=== PATIENT | male | born 1960 | race Caucasian/White ===

== ENCOUNTER 2016-11-15 10:02 | Day surgery (SDC) | payer OTHER ==
[2016-11-15] VITALS (8 sets, daily range): BP systolic 110–132; BP diastolic 74–85; PULSE 63–78; RESP 12–19; O2SAT 96–100
[~2016-11-15] VITALS: Ht 182.9 cm; Wt 89.0 kg
--- NOTE | 2016-11-15 08:47 | PCM.HPANE ---
Patient Data Surgeon Admitting Provider: Attending Provider:Jarrett Richardson DO Primary Care Physician:Luis Lucas MD Other Provider:Elizabeth Pardo Anesthesia Reason for Visit Left Partial Thick Rotator Cuff Tear,Labral Tear Ht/WT & BMI Height (Feet): 6 Height (Inches): 0 Weight (Kilograms): 93.8 Body Mass Index 28.00 Allergies Coded Allergies: codeine (Verified Adverse Reaction, Unknown, Agitation, 05/17/16) STATES IS NOT ALLERGIC TO PERCOCET AND HAS TAKEN WITHOUT INCIDENT. Uncoded Allergies: ADHESIVE BANDAGE (Allergy, Unknown, 11/13/16) pt states had "horrible skin reaction" to adhesive bandage used for last shoulder surgery Past Anesthesia History Anesthesia History: Denies:: Abnormal Airway, Anesthesia Reactions, Difficult Intubation, Fam Anesthesia Reaction, Fam Malignant Hypertherm, Malignant Hyperthermia Diabetes History Hx Diabetes?: No MRSA MRSA: No Medications Reported Medications Pramipexole Dihydrochloride 0.5 Mg Tablet0.5 Mg PO HS 05/15/16 Discontinued Reported Medications Ibuprofen 600 Mg [id number] Mg PO TID PRN For Pain Ref 0 05/15/16 History HEENT History: Denies:: Abnormal Airway Cataracts Difficult Intubation Dysphagia Hearing Problem Sinus Problem TMJ Cardiovascular History: Denies:: AICD Abdominal Aortic Aneurism Atrial Fibrillation Cardiac Surgery Chest Pain Congestive Heart Failure Edema Heart Murmur Hypertension Irregular Heartbeat Pacemaker Hx of Respiratory Problem?: Yes Respiratory History: Positive for:: Pneumonia (one time - remote hx) Denies:: Asthma COPD Emphysema Oxygen Administration Tuberculosis Use of C-PAP Machine Hx Neurologic Problems?: No Neurological History: Denies:: CVA Headaches Multiple Sclerosis Parkinson's Disease Seizures Gastrointestinal History: Denies:: Cirrhosis Gastroesphageal Reflux Gastrointestinal Bleeding Heartburn Hepatitis Hiatal Hernia Rectal Bleeding Hx of Problems?: No Genitourinary History: Denies:: Kidney Stones Urinary Tract Infection Male Hx: Denies:: Prostate Problems Skin History: Denies:: History Skin Disorders? Pressure Ulcers Hx Musculoskeletal Problems?: Yes Musculoskeletal History: Positive for:: Musculoskeletal Trauma (left shoulder current admission problem) Denies:: Back Injury Joint Replacement Systemic Lupus Hx of Psycho/Social Problems?: No Psycho Social History: Denies:: Anxiety Hx Depression Hx Surgeries?: Yes (appe, lysis of adhesions, patellar repair, right shoulder) Hx Any Other Health Problems?: Yes Other History: Denies:: Cancer Thyroid Disease History Blood Transfusions: Denies:: Blood Transfusions Hx Diabetes: No Hx Alcohol Use: YesHx Substance Use: No Smoking Status: Never Smoker Have You Smoked inLast 12 mo: No Stop/Bang S-Snoring: Do You Snore Loudly: No T-Tired: feel tired, fatigued: No O-Obsered: Observed not breath: No P-Blood Pressure: treated: No B- Body Mass Index > 35 kg/m2: No A- Age over 50: Yes N- Neck Large Circumference: No G- Gender Male: Yes DEN Total Score: 2 Risk Assessment Category Category 1A: Patient has history of documented sleep apnea, and HAS NOT received any narcotic, sedative or anesthesia administration during this stay. Category 1B: Patient has history of documented sleep apnea, and HAS received any narcotic , sedative or anesthesia administration during this stay Category 2: Patient has SUSPECTED Obstructive Sleep Apnea, and HAS received any narcotic , sedative or anesthesia administration during this stay. Category 3: Patient has SUSPECTED Obstructive Sleep Apnea and HAS NOT received narcotic, sedative or anesthesia administration during this stay. Category 4: Outpatient in Procedural Areas with known sleep apnea or who screen positive for High Risk via the STOP/BANG questionnaire. Exam Exam General Appearance: Alert, Oriented X3, Cooperative, No Acute Distress HEENT/AIRWAY: MP 2, Neck Movement (FROM), Mouth Opening (3 FBMO) Lungs: Normal Air Movement Heart: Regular Rate/Rhythm Plan Impression Patient chart reviewed, patient interviewed and anesthestic plan with risks, benefits, and alternatives discussed, and informed consent obtained. NPO Status: Clears up to 0900 ASA Physical Status: ASA2 Mod Systemic Disease Anesthetic Plan: GA, Regional Block (Left shoulder block) Bene/Risks/Altern/Consents: Yes HP Complete Prior to Induction: Yes Santos Ag MD Nov 15, 2016 08:47
[~2016-11-15 10:02] MED LIST: Lactated Ringer's 1,000 ML IV SCH; PRAM0.5T10 PO
[2016-11-15] MEDS ORDERED: Phenylephrine/NS 100 mCg/mL 10 mL Syringe IVPUSH ONE (10:03)
[2016-11-15] MEDS ORDERED: fentaNYL-PF 50 mCg/mL 2 mL Inj ONE (10:03)
[2016-11-15] MEDS ORDERED: Ropivacaine-PF 0.5% 30 mL Inj ONE (10:03)
[2016-11-15] MEDS ORDERED: Ondansetron 2 mg/mL 2 mL Inj ONE (10:03)
[2016-11-15] MEDS ORDERED: Propofol 10,000 mCg/mL 20 mL Inj ONE (10:03)
[2016-11-15] MEDS ORDERED: Rocuronium 10 mg/mL 5 mL Inj ONE (10:03)
[2016-11-15] MEDS ORDERED: MetoCLOpramide 5 mg/mL 2 mL Inj ONE (10:03)
[2016-11-15] MEDS ORDERED: Neostigmine 1 mg/mL 5 mL Inj ONE (10:03)
[2016-11-15] MEDS ORDERED: Glycopyrrolate 0.2 mg/mL 5 mL Inj ONE (10:03)
[2016-11-15] MEDS ORDERED: Dexamethasone 4 mg/mL Inj ONE (10:03)
[2016-11-15] MEDS ORDERED: Lactated Ringer's 1,000 ML IV ONE (10:47)
[2016-11-15] MEDS ORDERED: CeFAZolin 2 Gm/50 mL D5W Duplex Bag IV ONE (10:52)
--- NOTE | 2016-11-15 11:10 | PCM.HPANE ---
Patient Data Date of Service: Nov 15, 2016 Surgeon Admitting Provider: Attending Provider:Jarrett Richardson DO Primary Care Physician:Luis Lucas MD Other Provider:Elizabeth Pardo Anesthesia Reason for Visit Left Partial Thick Rotator Cuff Tear,Labral Tear Ht/WT & BMI Height (Feet): 6 Height (Inches): 0.00 Weight (Kilograms): 89 Body Mass Index 26.00 Allergies Coded Allergies: codeine (Verified Adverse Reaction, Unknown, Agitation, 05/17/16) STATES IS NOT ALLERGIC TO PERCOCET AND HAS TAKEN WITHOUT INCIDENT. Uncoded Allergies: ADHESIVE BANDAGE (Allergy, Unknown, 11/13/16) pt states had "horrible skin reaction" to adhesive bandage used for last shoulder surgery Past Anesthesia History Anesthesia History: Denies:: Abnormal Airway, Anesthesia Reactions, Difficult Intubation, Fam Anesthesia Reaction, Fam Malignant Hypertherm, Malignant Hyperthermia Diabetes History Hx Diabetes?: No MRSA MRSA: No Medications Home Meds Incl Beta Yovanny: No Reported Medications Pramipexole Dihydrochloride 0.5 Mg Tablet0.5 Mg PO HS 05/15/16 Discontinued Reported Medications Ibuprofen 600 Mg [id number] Mg PO TID PRN For Pain Ref 0 05/15/16 History History of ENT Problems?: No HEENT History: Denies:: Abnormal Airway Cataracts Difficult Intubation Dysphagia Hearing Problem Sinus Problem TMJ Hx of Heart Problems?: No Cardiovascular History: Denies:: AICD Abdominal Aortic Aneurism Atrial Fibrillation Cardiac Surgery Chest Pain Congestive Heart Failure Edema Heart Murmur Hypertension Irregular Heartbeat Pacemaker Hx of Respiratory Problem?: Yes Respiratory History: Positive for:: Pneumonia (one time - remote hx) Denies:: Asthma COPD Emphysema Oxygen Administration Tuberculosis Use of C-PAP Machine Hx Neurologic Problems?: No Neurological History: Denies:: CVA Headaches Multiple Sclerosis Parkinson's Disease Seizures Hx of GI Problems?: No Gastrointestinal History: Denies:: Cirrhosis Gastroesphageal Reflux Gastrointestinal Bleeding Heartburn Hepatitis Hiatal Hernia Rectal Bleeding Hx of Problems?: No Genitourinary History: Denies:: Kidney Stones Urinary Tract Infection Male Hx: Denies:: Prostate Problems Skin History: Denies:: History Skin Disorders? Pressure Ulcers Hx Musculoskeletal Problems?: Yes Musculoskeletal History: Positive for:: Musculoskeletal Trauma (left shoulder current admission problem) Denies:: Back Injury Joint Replacement Systemic Lupus Hx of Psycho/Social Problems?: No Psycho Social History: Denies:: Anxiety Hx Depression Hx Surgeries?: Yes (appe, lysis of adhesions, patellar repair, right shoulder) Hx Any Other Health Problems?: Yes Other History: Denies:: Cancer Thyroid Disease History Blood Transfusions: Denies:: Blood Transfusions Hx Diabetes: No Hx Alcohol Use: YesHx Substance Use: No Smoking Status: Never Smoker Have You Smoked inLast 12 mo: No Stop/Bang Treated for Sleep Apnea?: No Do You Have a CPAP Machine?: No S-Snoring: Do You Snore Loudly: No T-Tired: feel tired, fatigued: No O-Obsered: Observed not breath: No P-Blood Pressure: treated: No B- Body Mass Index > 35 kg/m2: No A- Age over 50: Yes N- Neck Large Circumference: No G- Gender Male: Yes DEN Total Score: 2 DEN Risk Assessment: Low Risk, <3 Yes Risk Assessment Category Category 1A: Patient has history of documented sleep apnea, and HAS NOT received any narcotic, sedative or anesthesia administration during this stay. Category 1B: Patient has history of documented sleep apnea, and HAS received any narcotic , sedative or anesthesia administration during this stay Category 2: Patient has SUSPECTED Obstructive Sleep Apnea, and HAS received any narcotic , sedative or anesthesia administration during this stay. Category 3: Patient has SUSPECTED Obstructive Sleep Apnea and HAS NOT received narcotic, sedative or anesthesia administration during this stay. Category 4: Outpatient in Procedural Areas with known sleep apnea or who screen positive for High Risk via the STOP/BANG questionnaire. Exam Exam Vital Signs Vital Signs Date Time Temp Pulse Resp B/P Pulse Ox O2 Delivery O2 Flow Rate FiO2 11/15/16 10:48 36.5 78 14 129/85 98 Room Air General Appearance: Alert, Oriented X3, Cooperative HEENT/AIRWAY: MP 2, Neck Movement (Full, h[place]go), Mouth Opening (Wide) Lungs: Clear to Auscultation, Normal Air Movement Heart: Regular Rate/Rhythm, Normal S1, Normal S2 Meds/Labs/Diagnostics Admission Meds Current Medications Lactated Ringer's (Lr) 1,000 ml @ ud STK-MED ONCE IV Last administered on t 10:47; Start 11/15/16 at 10:47; Stop 11/15/16 at 10:48; Status DC Plan Impression Patient chart reviewed, patient interviewed and anesthestic plan with risks, benefits, and alternatives discussed, and informed consent obtained. NPO Status: 11/15@0800 BLACK COFFEE ASA Physical Status: ASA1 Normal Healthy Anesthetic Plan: GA, Regional Block Bene/Risks/Altern/Consents: Yes HP Complete Prior to Induction: Yes Alphonso Conroy MD Nov 15, 2016 11:08
[2016-11-15] MEDS ORDERED: Lactated Ringer's 500 ML IV PRN (11:12)
[2016-11-15] MEDS ORDERED: Lactated Ringer's 1,000 ML IV SCH (11:12)
[2016-11-15] MEDS ORDERED: MetoCLOpramide 5 mg/mL 2 mL Inj IVPUSH PRN (11:15)
[2016-11-15] MEDS ORDERED: EPHEDrine Sulfate 50 mg/mL Inj IVPUSH PRN (11:15)
[2016-11-15] MEDS ORDERED: Ondansetron 2 mg/mL 2 mL Inj IVPUSH PRN (11:15)
[2016-11-15] MEDS ORDERED: Phenylephrine 10,000 mCg/mL Inj IVPUSH PRN (11:15)
[2016-11-15] MEDS ORDERED: Dexamethasone 4 mg/mL Inj IVPUSH PRN (11:15)
[2016-11-15] MEDS ORDERED: fentaNYL-PF 50 mCg/mL 2 mL Inj IVPUSH PRN (11:15)
[2016-11-15] MEDS ORDERED: oxyCODONE-Acetamin 5-325 mg Tablet PO PRN (14:10)
--- NOTE | 2016-11-15 15:04 | PCM.ANEP1 ---
Post Anesthesia Phase 1 PACU Phase 1 Assessment Date of Service: Nov 15, 2016 Vital Signs Vital Signs Date Time Temp Pulse Resp B/P Pulse Ox O2 Delivery O2 Flow Rate FiO2 11/15/16 14:24 70 16 132/82 96 Room Air 11/15/16 14:15 68 13 124/80 97 Nasal Cannula 2 11/15/16 14:10 64 13 120/74 99 Nasal Cannula 11/15/16 14:05 63 12 120/75 96 Simple Mask 10 11/15/16 14:00 65 19 110/76 96 Simple Mask 10 11/15/16 13:52 36.3 73 19 130/81 100 Simple Mask 10 11/15/16 10:48 36.5 78 14 129/85 98 Room Air Anesthetic Administered: GA, Regional Block (Left shoulder block) Level of Alertness: Awake, talking BOCANEGRA's with Equal Strength: No (Shoulder block still in effect) Pain: No Nausea or Vomiting: No Oxygen Delivery: Simple Mask Lungs: Normal Air Movement Dermatome Level: Full Sensation (except for distribution of L shoulder block) Santos Ag MD Nov 15, 2016 15:04
--- NOTE | 2016-11-15 15:05 | PCM.ANEP2 ---
Post Anesthesia Evaluation ASA/CMS Post Anesthesia VS in Patient's Normal Range?: Yes Resp Stable; Airway Patent?: Yes CV Function & Hydration Stable: Yes Mental Status Recovered?: Yes Pain control Satisfactory?: Yes N/V Control Satisfactory?: Yes Santos Ag MD Nov 15, 2016 15:04
--- NOTE | 2016-11-15 21:54 | OP ---
[address] [address] OPERATIVE REPORT PATIENT: ANUP HERNANDEZ : 1960 MR#: [id number] ADMIT: 11/15/2016 JOB ID: [id number] DATE OF SURGERY: 11/15/2016 PREOPERATIVE DIAGNOSIS(ES): 1. Left shoulder high-grade partial thickness rotator cuff tear. 2. Left shoulder impingement syndrome. 3. Left shoulder labral tear to the anterior inferior labrum. POSTOPERATIVE DIAGNOSIS(ES): 1. Left shoulder high-grade partial thickness rotator cuff tear. 2. Left shoulder impingement syndrome. 3. Left shoulder labral tear to the anterior inferior labrum. PROCEDURE: 1. Left shoulder arthroscopy with rotator cuff repair. 2. Left shoulder arthroscopy with subacromial decompression. 3. Left shoulder arthroscopy with limited debridement consisting of debridement of the labrum. SURGEON: Jarrett Richardson D.O. ASSISTANTS: Александр Helms PA-C. Assistance of Александр Helms PA-C was necessary for help with manipulation of the intra-articular equipment, including the camera, and for primary closure at conclusion of the case. BRIEF HISTORY: The patient is a pleasant 56-year-old male who is being seen for both of his shoulders. He underwent surgery several months prior for his right shoulder but continued to have pain in regards to his left. His left shoulder demonstrated several characteristics different than the right shoulder and with the MRI demonstrated a high-grade partial thickness tear as well as impingement syndrome and anterior-inferior degenerative labral tear. The patient failed conservative treatment with injections as well as therapy and opted to proceed with operative intervention. He understood the risks include, but are not limited to, neurovascular injury, tendon injury, infection, failure of fixation, stiffness, persistent pain which may require further intervention. All questions answered. Consent was signed and placed in the chart. PROCEDURE IN DETAIL: The patient was brought to the operative suite and placed supine on the operating table. Surgical time-out was performed. Everyone in the room was in agreement. After appropriate anesthesia was obtained, the patient was placed in the beach chair position with all prominences well padded. The left upper extremity was then prepped and draped in sterile fashion. The left arm was then placed in the arthroscopic arm rowell. A posterior viewing portal was then developed in typical fashion and the camera introduced into the glenohumeral joint. On gross observation, there was degenerative fraying to the anterior-inferior labrum. The chondral surface of the humeral head and glenoid were free of any chondromalacia and the biceps as well as superior labrum were free of any pathology. The undersurface of the rotator cuff also appeared to be intact. An anterior working portal was then developed in typical fashion and confirmed the above findings with a probe. A shaver next was utilized to debride the anterior-inferior labrum. The probe again was utilized to elevate the labrum to assess instability as well as the biceps and the superior labrum as well as the biceps was found to be intact. The camera was introduced into the subacromial space. There was significant hypertrophic bursa. A lateral working portal was then developed and a shaver introduced to perform extensive bursectomy to allow for visualization of the bursal surface of the rotator cuff. Starting posteriorly and at the mid aspect of the rotator cuff, the tendon was found to be well intact, moving anteriorly. The anterior fibers of the supraspinatus demonstrated a high-grade partial thickness tear. A probe easily passed through the attenuated fibers, thus decision was made to proceed with a rotator cuff repair. The end of the anterior surface of the supraspinatus was then further debrided as well as the greater tuberosity footprint. A single Arthrex 4.5 mm corkscrew anchor was then advanced to the greater tuberosity and the four limbs of suture passed through the rotator cuff tendon and tied for a single row repair. Attention was then turned towards the undersurface of the acromion. There was significant underhanging of the acromion. This was further delineated with surface electrocautery. Next, a bur was utilized to perform an extensive acromioplasty. The distal clavicle did not need to be addressed as there was only very minimal arthritis to the distal clavicle and the AC joint. The arthroscopic probe was removed from the joint and the portal was then closed with 4-0 nylon simple interrupted fashion. The patient was then placed in a bulky dressing and into a shoulder immobilizer. ESTIMATED BLOOD LOSS: 25 cc. COMPLICATIONS: None. DISPOSITION: The patient tolerated the procedure well. Anesthesia was reversed. The patient was transferred back to recovery. POSTOPERATIVE PLAN: The patient will follow up in the office in two weeks. We will have him start working more on elbow range of motion at that time, but he will be six weeks postop before we discontinue the immobilizers and start him on formal physical therapy.
== END 2016-11-15 23:59 | disposition home or self-care (01) ==
LOC: SAS 10:02
PROVIDERS: ATTEND Orthopaedic Surgery
DX: M75.112 Incomplete rotator cuff tear or rupture of left shoulder, not specified as traumatic (principal); M75.42 Impingement syndrome of left shoulder; M24.112 Other articular cartilage disorders, left shoulder
CPT/HCPCS: 29826; 29827; 76942; C1713; J0690; J1100; J2250; J2370; J2405; J2710; J2765; J2795; J7120